=== PATIENT | female | born 1965 | race Caucasian/White ===

== ENCOUNTER 2025-03-03 13:58 | Inpatient (IN) ==
[2025-03-03] MEDS ORDERED: IOPAMIDOL 100 ML BOTTLE IV ONE (13:59)
[2025-03-03] MEDS: ONDANSETRON 4 MG/2 ML VIAL IV ONE (17:10)
[2025-03-03] MEDS: 0.9 % SODIUM CHLORIDE 1,000 ML IV ONE (17:10)
[2025-03-03] MEDS: KETOROLAC 15 MG/ML VIAL IV ONE (17:10)
[2025-03-03 17:19] LABS: Bacteria,Urine Many /hpf (0); Bilirubin,Urine Small mg/dL (Negative); Calcium Oxalate Crystals,Urine Few /hpf; Color,Urine Yellow; Glucose,Urine (UA) Negative (Negative); Ketones,Urine Trace mg/dL (Negative); Leukocyte Esterase,Urine Small /uL (Negative); PH,Urine 6.0 (5.0-9.0); Protein,Urine 100 mg/dL (Negative); Specific Gravity,Urine 1.025 (1.000-1.035); Urobilinogen,Urine Normal
[2025-03-03 17:39] LABS: Basophils # (Auto) 0.03 K/mcL (0.00-0.30); Basophils % (Auto) 0.4 % (0.0-2.0); Eosinophils # (Auto) 0.08 K/mcL (0.00-0.70); Eosinophils % (Auto) 1.0 % (0.0-7.0); Hematocrit 37.2 % (34.1-44.9); Hemoglobin 11.8 g/dL (11.2-15.7); Lymphocytes # (Auto) 1.95 K/mcL (1.50-4.80); Lymphocytes % (Auto) 23.8 % (15.5-49.0); Mean Corpuscular HGB Conc 31.7 g/dL (31.0-36.0); Monocytes # (Auto) 0.52 K/mcL (0.10-0.90); Monocytes % (Auto) 6.4 % (1.0-12.0); Neutrophils % (Auto) 68.2 % (38.0-78.0); Platelet Count 438 K/mcL (140-440); RBC 3.53 M/mcL (3.59-5.38); WBC 8.2 K/mcL (4.5-11.0)
[2025-03-03] MEDS: AMPICILLIN SODIUM/SULBACTAM NA 3 GM in 0.9 % SODIUM CHLORIDE 100 ML IV ONE (20:02)
[2025-03-03 20:29] LABS: ALT/SGPT 23 U/L (<40); AST/SGOT 13 U/L (<32); Albumin 3.5 gm/dL (3.2-5.2); Albumin/Globulin Ratio 1.5 (1.0-2.3); Alkaline Phosphatase 140 U/L (39-117); Anion Gap 10.0 (8.0-16.0); Bilirubin,Total 0.3 mg/dL (0.1-1.0); Blood Urea Nitrogen 28 mg/dL (8-23); Calcium 8.8 mg/dL (8.6-10.4); Carbon Dioxide 26 mmol/L (22-30); Chloride 102 mmol/L (96-108); Globulin 2.3 gm/dL (2.2-3.7); Glucose 90 mg/dL (70-105); Potassium 4.3 mmol/L (3.3-5.1); Sodium 138 mmol/L (133-145)
[2025-03-03] MEDS: ACETAMINOPHEN 1,000 MG/100 ML BAG IV ONE (20:34)
[2025-03-03] MEDS: ERTAPENEM 1 GM in 0.9 % SODIUM CHLORIDE 50 ML IV ONE (21:21)
[2025-03-03] MEDS ORDERED: SENNOSIDES 1 TABLET PO PRN (23:12)
[2025-03-03] MEDS: MELATONIN 3 MG TABLET PO SCH (23:56)
[2025-03-03] MEDS: LACTATED RINGERS 1,000 ML IV SCH (23:56)
[2025-03-04] MEDS: ZOLPIDEM 5 MG TABLET PO PRN (00:43)
[2025-03-04] MEDS: ZOLPIDEM 5 MG TABLET ONE (00:54)
[2025-03-04] MEDS: ACETAMINOPHEN 325 MG TABLET PO PRN (01:11)
[2025-03-04] MEDS: ACETAMINOPHEN 325 MG TABLET PO ONE (01:24)
[2025-03-04] MEDS: 0.9 % SODIUM CHLORIDE 10 ML SYRINGE IV SCH (04:53)
[2025-03-04 06:38] LABS: Phosphorous 3.4 mg/dL (2.5-4.5)
[2025-03-04 06:40] LABS: C-Reactive Protein < 0.30 mg/dL (0.03-0.80)
[2025-03-04 07:23] LABS: Basophils # (Auto) 0.02 K/mcL (0.00-0.30); Basophils % (Auto) 0.4 % (0.0-2.0); Eosinophils # (Auto) 0.02 K/mcL (0.00-0.70); Eosinophils % (Auto) 0.4 % (0.0-7.0); Hematocrit 32.6 % (34.1-44.9); Hemoglobin 10.4 g/dL (11.2-15.7); Lymphocytes # (Auto) 0.87 K/mcL (1.50-4.80); Lymphocytes % (Auto) 17.4 % (15.5-49.0); Mean Corpuscular HGB Conc 31.9 g/dL (31.0-36.0); Monocytes # (Auto) 0.32 K/mcL (0.10-0.90); Monocytes % (Auto) 6.4 % (1.0-12.0); Neutrophils % (Auto) 75.2 % (38.0-78.0); Platelet Count 308 K/mcL (140-440); RBC 3.12 M/mcL (3.59-5.38); WBC 5.0 K/mcL (4.5-11.0)
[2025-03-04 07:42] LABS: ALT/SGPT 345 U/L (<40); AST/SGOT 1098 U/L (<32); Albumin 2.9 gm/dL (3.2-5.2); Albumin/Globulin Ratio 1.6 (1.0-2.3); Alkaline Phosphatase 328 U/L (39-117); Anion Gap 9.0 (8.0-16.0); Bilirubin,Total 0.9 mg/dL (0.1-1.0); Blood Urea Nitrogen 19 mg/dL (8-23); Calcium 8.6 mg/dL (8.6-10.4); Carbon Dioxide 26 mmol/L (22-30); Chloride 102 mmol/L (96-108); Globulin 1.8 gm/dL (2.2-3.7); Glucose 93 mg/dL (70-105); Potassium 3.9 mmol/L (3.3-5.1); Sodium 137 mmol/L (133-145)
[2025-03-04] MEDS: LOSARTAN 50 MG TABLET PO SCH (08:32)
[2025-03-04] MEDS: ONDANSETRON 4 MG/2 ML VIAL IV PRN (08:33)
[2025-03-04] MEDS: ENOXAPARIN 40 MG/0.4 ML SYRINGE SQ SCH (08:34)
[2025-03-04] MEDS: ERTAPENEM 1 GM in 0.9 % SODIUM CHLORIDE 50 ML IV SCH (08:35)
[2025-03-04 09:11] LABS: ALT/SGPT 355 U/L (<40); AST/SGOT 1112 U/L (<32); Albumin 2.9 gm/dL (3.2-5.2); Alkaline Phosphatase 332 U/L (39-117); Bilirubin,Direct 0.6 mg/dL (<0.3); Bilirubin,Total 0.9 mg/dL (0.1-1.0); Globulin 1.9 gm/dL (2.2-3.7)
[2025-03-04 10:08] LABS: Hepatitis A Antibody IgM Non-Reactive (Non-Reactive); Hepatitis B Surface Antigen Negative (Negative)
[2025-03-04] MEDS: PROCHLORPERAZINE 10 MG/2 ML VIAL IV PRN (12:22)
[2025-03-04] MEDS: PREGABALIN 150 MG CAPSULE PO SCH (13:01)
[2025-03-05 06:57] LABS: Basophils # (Auto) 0.02 K/mcL (0.00-0.30); Basophils % (Auto) 0.9 % (0.0-2.0); Eosinophils # (Auto) 0.07 K/mcL (0.00-0.70); Eosinophils % (Auto) 3.1 % (0.0-7.0); Hematocrit 33.8 % (34.1-44.9); Hemoglobin 11.1 g/dL (11.2-15.7); Lymphocytes # (Auto) 0.91 K/mcL (1.50-4.80); Lymphocytes % (Auto) 39.7 % (15.5-49.0); Mean Corpuscular HGB Conc 32.8 g/dL (31.0-36.0); Monocytes # (Auto) 0.19 K/mcL (0.10-0.90); Monocytes % (Auto) 8.3 % (1.0-12.0); Neutrophils % (Auto) 47.6 % (38.0-78.0); Platelet Count 268 K/mcL (140-440); RBC 3.27 M/mcL (3.59-5.38); WBC 2.3 K/mcL (4.5-11.0)
[2025-03-05 07:10] LABS: ALT/SGPT 425 U/L (<40); AST/SGOT 565 U/L (<32); Albumin 3.1 gm/dL (3.2-5.2); Albumin/Globulin Ratio 1.6 (1.0-2.3); Alkaline Phosphatase 427 U/L (39-117); Anion Gap 10.0 (8.0-16.0); Bilirubin,Direct 0.2 mg/dL (<0.3); Bilirubin,Total 0.4 mg/dL (0.1-1.0); Blood Urea Nitrogen 12 mg/dL (8-23); Calcium 8.8 mg/dL (8.6-10.4); Carbon Dioxide 27 mmol/L (22-30); Chloride 101 mmol/L (96-108); Globulin 1.9 gm/dL (2.2-3.7); Glucose 101 mg/dL (70-105); Phosphorous 3.9 mg/dL (2.5-4.5); Potassium 4.0 mmol/L (3.3-5.1); Sodium 138 mmol/L (133-145); Triglycerides 99 mg/dL (<150); Uric Acid 3.3 mg/dL (2.5-8.0)
[2025-03-05] MEDS: LEVOTHYROXINE 50 MCG TABLET PO SCH (08:08)
[2025-03-05] MEDS: LIOTHYRONINE 5 MCG TABLET PO SCH (09:09)
[2025-03-05] MEDS: HEPARIN 10 UNITS/ML 5ML FLUSH IV SCH (20:22)
[2025-03-05] MEDS: 0.9 % SODIUM CHLORIDE 10 ML SYRINGE IV SCH (20:26)
[2025-03-06 06:39] LABS: Basophils # (Auto) 0.03 K/mcL (0.00-0.30); Basophils % (Auto) 0.9 % (0.0-2.0); Eosinophils # (Auto) 0.05 K/mcL (0.00-0.70); Eosinophils % (Auto) 1.4 % (0.0-7.0); Hematocrit 33.0 % (34.1-44.9); Hemoglobin 10.6 g/dL (11.2-15.7); Lymphocytes # (Auto) 1.07 K/mcL (1.50-4.80); Lymphocytes % (Auto) 30.9 % (15.5-49.0); Mean Corpuscular HGB Conc 32.1 g/dL (31.0-36.0); Monocytes # (Auto) 0.33 K/mcL (0.10-0.90); Monocytes % (Auto) 9.5 % (1.0-12.0); Neutrophils % (Auto) 57.3 % (38.0-78.0); Platelet Count 311 K/mcL (140-440); RBC 3.15 M/mcL (3.59-5.38); WBC 3.5 K/mcL (4.5-11.0)
[2025-03-06 07:02] LABS: ALT/SGPT 412 U/L (<40); AST/SGOT 497 U/L (<32); Albumin 2.9 gm/dL (3.2-5.2); Albumin/Globulin Ratio 1.4 (1.0-2.3); Alkaline Phosphatase 442 U/L (39-117); Anion Gap 9.0 (8.0-16.0); Bilirubin,Direct 0.4 mg/dL (<0.3); Bilirubin,Total 0.6 mg/dL (0.1-1.0); Blood Urea Nitrogen 18 mg/dL (8-23); Calcium 8.8 mg/dL (8.6-10.4); Carbon Dioxide 26 mmol/L (22-30); Chloride 101 mmol/L (96-108); Globulin 2.1 gm/dL (2.2-3.7); Glucose 100 mg/dL (70-105); Phosphorous 4.9 mg/dL (2.5-4.5); Potassium 4.5 mmol/L (3.3-5.1); Sodium 136 mmol/L (133-145); Triglycerides 87 mg/dL (<150); Uric Acid 4.7 mg/dL (2.5-8.0)
[2025-03-06] MEDS: 0.9 % SODIUM CHLORIDE 1,000 ML IV SCH (09:00)
[2025-03-06] MEDS: 0.9 % SODIUM CHLORIDE 500 ML IV ONE (09:17)
[2025-03-06 12:56] LABS: Anion Gap 10.0 (8.0-16.0); Blood Urea Nitrogen 19 mg/dL (8-23); Calcium 9.2 mg/dL (8.6-10.4); Carbon Dioxide 27 mmol/L (22-30); Chloride 101 mmol/L (96-108); Glucose 131 mg/dL (70-105); Potassium 4.6 mmol/L (3.3-5.1); Sodium 138 mmol/L (133-145)
[2025-03-06] MEDS ORDERED: SODIUM BICARBONATE VIAL 150 MEQ in WATER FOR INJECTION,STERILE 850 ML IV SCH (13:30)
[2025-03-06] MEDS: LACTATED RINGERS 1,000 ML IV ONE (13:48)
[2025-03-06] MEDS: LACTATED RINGERS 1,000 ML IV SCH (14:59)
[2025-03-07 06:22] LABS: Basophils # (Auto) 0.02 K/mcL (0.00-0.30); Basophils % (Auto) 0.2 % (0.0-2.0); Eosinophils # (Auto) 0.05 K/mcL (0.00-0.70); Eosinophils % (Auto) 0.6 % (0.0-7.0); Hematocrit 34.3 % (34.1-44.9); Hemoglobin 10.8 g/dL (11.2-15.7); Lymphocytes # (Auto) 0.85 K/mcL (1.50-4.80); Lymphocytes % (Auto) 9.6 % (15.5-49.0); Mean Corpuscular HGB Conc 31.5 g/dL (31.0-36.0); Monocytes # (Auto) 0.36 K/mcL (0.10-0.90); Monocytes % (Auto) 4.1 % (1.0-12.0); Neutrophils % (Auto) 85.3 % (38.0-78.0); Platelet Count 323 K/mcL (140-440); RBC 3.20 M/mcL (3.59-5.38); WBC 8.9 K/mcL (4.5-11.0)
[2025-03-07 06:48] LABS: ALT/SGPT 513 U/L (<40); AST/SGOT 470 U/L (<32); Albumin 3.2 gm/dL (3.2-5.2); Albumin/Globulin Ratio 1.5 (1.0-2.3); Alkaline Phosphatase 546 U/L (39-117); Anion Gap 10.0 (8.0-16.0); Bilirubin,Direct 0.4 mg/dL (<0.3); Bilirubin,Total 0.7 mg/dL (0.1-1.0); Blood Urea Nitrogen 20 mg/dL (8-23); Calcium 9.2 mg/dL (8.6-10.4); Carbon Dioxide 26 mmol/L (22-30); Chloride 103 mmol/L (96-108); Globulin 2.2 gm/dL (2.2-3.7); Glucose 122 mg/dL (70-105); Phosphorous 5.3 mg/dL (2.5-4.5); Potassium 5.1 mmol/L (3.3-5.1); Sodium 139 mmol/L (133-145); Triglycerides 85 mg/dL (<150); Uric Acid 5.1 mg/dL (2.5-8.0)
[2025-03-07] MEDS: SODIUM BICARBONATE VIAL 150 MEQ in WATER FOR INJECTION,STERILE 850 ML IV SCH (10:45)
[2025-03-07 19:04] LABS: Anion Gap 12.0 (8.0-16.0); Blood Urea Nitrogen 19 mg/dL (8-23); Calcium 9.2 mg/dL (8.6-10.4); Carbon Dioxide 27 mmol/L (22-30); Chloride 99 mmol/L (96-108); Glucose 150 mg/dL (70-105); Potassium 4.2 mmol/L (3.3-5.1); Sodium 138 mmol/L (133-145)
[2025-03-08 06:01] LABS: Basophils # (Auto) 0.03 K/mcL (0.00-0.30); Basophils % (Auto) 0.4 % (0.0-2.0); Eosinophils # (Auto) 0.19 K/mcL (0.00-0.70); Eosinophils % (Auto) 2.8 % (0.0-7.0); Hematocrit 34.6 % (34.1-44.9); Hemoglobin 10.5 g/dL (11.2-15.7); Lymphocytes # (Auto) 1.89 K/mcL (1.50-4.80); Lymphocytes % (Auto) 27.6 % (15.5-49.0); Mean Corpuscular HGB Conc 30.3 g/dL (31.0-36.0); Monocytes # (Auto) 0.34 K/mcL (0.10-0.90); Monocytes % (Auto) 5.0 % (1.0-12.0); Neutrophils % (Auto) 64.1 % (38.0-78.0); Platelet Count 250 K/mcL (140-440); RBC 3.11 M/mcL (3.59-5.38); WBC 6.9 K/mcL (4.5-11.0)
[2025-03-08 06:40] LABS: ALT/SGPT 349 U/L (<40); AST/SGOT 152 U/L (<32); Albumin 3.1 gm/dL (3.2-5.2); Albumin/Globulin Ratio 1.2 (1.0-2.3); Alkaline Phosphatase 507 U/L (39-117); Anion Gap 14.0 (8.0-16.0); Bilirubin,Direct < 0.2 mg/dL (0-0.3); Bilirubin,Total 0.4 mg/dL (0.1-1.0); Blood Urea Nitrogen 18 mg/dL (8-23); Calcium 8.8 mg/dL (8.6-10.4); Carbon Dioxide 26 mmol/L (22-30); Chloride 96 mmol/L (96-108); Globulin 2.5 gm/dL (2.2-3.7); Glucose 105 mg/dL (70-105); Phosphorous 3.9 mg/dL (2.5-4.5); Potassium 5.1 mmol/L (3.3-5.1); Sodium 136 mmol/L (133-145); Triglycerides 80 mg/dL (<150); Uric Acid 5.4 mg/dL (2.5-8.0)
[2025-03-08 12:02] LABS: Bilirubin,Urine Negative (Negative); Color,Urine Yellow; Glucose,Urine (UA) Negative (Negative); Ketones,Urine Negative (Negative); Leukocyte Esterase,Urine Negative /uL (Negative); PH,Urine 5.5 (5.0-9.0); Protein,Urine Negative (Negative); Specific Gravity,Urine 1.010 (1.000-1.035); Urobilinogen,Urine Normal
[2025-03-08] MEDS: METHOCARBAMOL 750 MG TABLET PO PRN (14:46)
[2025-03-08] MEDS: LIDOCAINE 4% TOP PATCH TOPICAL SCH (14:46)
[2025-03-09 06:46] LABS: ALT/SGPT 213 U/L (<40); AST/SGOT 51 U/L (<32); Albumin 2.8 gm/dL (3.2-5.2); Albumin/Globulin Ratio 1.3 (1.0-2.3); Alkaline Phosphatase 381 U/L (39-117); Anion Gap 8.0 (8.0-16.0); Bilirubin,Direct < 0.2 mg/dL (0-0.3); Bilirubin,Total < 0.2 mg/dL (0.1-1.0); Blood Urea Nitrogen 15 mg/dL (8-23); Calcium 8.6 mg/dL (8.6-10.4); Carbon Dioxide 36 mmol/L (22-30); Chloride 96 mmol/L (96-108); Globulin 2.1 gm/dL (2.2-3.7); Glucose 94 mg/dL (70-105); Phosphorous 4.4 mg/dL (2.5-4.5); Potassium 4.6 mmol/L (3.3-5.1); Sodium 140 mmol/L (133-145); Triglycerides 97 mg/dL (<150); Uric Acid 5.6 mg/dL (2.5-8.0)
[2025-03-09] MEDS: POLYETHYLENE GLYCOL 3350 17 GM PACKET PO PRN (09:02)
[2025-03-09 11:17] LABS: Basophils # (Auto) 0.03 K/mcL (0.00-0.30); Basophils % (Auto) 0.8 % (0.0-2.0); Eosinophils # (Auto) 0.13 K/mcL (0.00-0.70); Eosinophils % (Auto) 3.3 % (0.0-7.0); Hematocrit 34.6 % (34.1-44.9); Hemoglobin 10.8 g/dL (11.2-15.7); Lymphocytes # (Auto) 1.42 K/mcL (1.50-4.80); Lymphocytes % (Auto) 35.9 % (15.5-49.0); Mean Corpuscular HGB Conc 31.2 g/dL (31.0-36.0); Monocytes # (Auto) 0.33 K/mcL (0.10-0.90); Monocytes % (Auto) 8.4 % (1.0-12.0); Neutrophils % (Auto) 51.3 % (38.0-78.0); Platelet Count 310 K/mcL (140-440); RBC 3.21 M/mcL (3.59-5.38); WBC 4.0 K/mcL (4.5-11.0)
[2025-03-09 13:44] LABS: Anion Gap 8.0 (8.0-16.0); Blood Urea Nitrogen 13 mg/dL (8-23); Calcium 9.0 mg/dL (8.6-10.4); Carbon Dioxide 35 mmol/L (22-30); Chloride 97 mmol/L (96-108); Glucose 151 mg/dL (70-105); Potassium 4.7 mmol/L (3.3-5.1); Sodium 140 mmol/L (133-145)
[2025-03-09] MEDS ORDERED: IOPAMIDOL 100 ML BOTTLE IV ONE (14:51)
[2025-03-09] MEDS: SODIUM BICARBONATE VIAL 150 MEQ in WATER FOR INJECTION,STERILE 850 ML IV SCH (17:18)
[2025-03-09] MEDS: ASPIRIN 81 MG TAB.CHEW CHEWED ONE (21:42)
[2025-03-09 22:31] LABS: HDL Cholesterol 90 mg/dL (>40); LDL Cholesterol,Calculated 91 mg/dL (<100); Triglycerides 115 mg/dL (<150)
[2025-03-10 06:50] LABS: Basophils # (Auto) 0.03 K/mcL (0.00-0.30); Basophils % (Auto) 1.0 % (0.0-2.0); Eosinophils # (Auto) 0.13 K/mcL (0.00-0.70); Eosinophils % (Auto) 4.5 % (0.0-7.0); Hematocrit 30.1 % (34.1-44.9); Hemoglobin 9.7 g/dL (11.2-15.7); Lymphocytes # (Auto) 1.23 K/mcL (1.50-4.80); Lymphocytes % (Auto) 42.7 % (15.5-49.0); Mean Corpuscular HGB Conc 32.2 g/dL (31.0-36.0); Monocytes # (Auto) 0.22 K/mcL (0.10-0.90); Monocytes % (Auto) 7.6 % (1.0-12.0); Neutrophils % (Auto) 43.9 % (38.0-78.0); Platelet Count 276 K/mcL (140-440); RBC 2.86 M/mcL (3.59-5.38); WBC 2.9 K/mcL (4.5-11.0)
[2025-03-10 07:40] LABS: ALT/SGPT 156 U/L (<40); AST/SGOT 31 U/L (<32); Albumin 2.9 gm/dL (3.2-5.2); Albumin/Globulin Ratio 1.3 (1.0-2.3); Alkaline Phosphatase 319 U/L (39-117); Anion Gap 9.0 (8.0-16.0); Bilirubin,Direct < 0.2 mg/dL (0-0.3); Bilirubin,Total 0.2 mg/dL (0.1-1.0); Blood Urea Nitrogen 12 mg/dL (8-23); Calcium 8.9 mg/dL (8.6-10.4); Carbon Dioxide 34 mmol/L (22-30); Chloride 99 mmol/L (96-108); Globulin 2.3 gm/dL (2.2-3.7); Glucose 88 mg/dL (70-105); Phosphorous 4.5 mg/dL (2.5-4.5); Potassium 4.6 mmol/L (3.3-5.1); Sodium 142 mmol/L (133-145); Triglycerides 126 mg/dL (<150); Uric Acid 5.5 mg/dL (2.5-8.0)
[2025-03-10] MEDS: ASPIRIN 81 MG TAB.CHEW CHEWED SCH (10:06)
[2025-03-10 10:49] LABS: Bilirubin,Urine Negative (Negative); Color,Urine Yellow; Glucose,Urine (UA) Negative (Negative); Ketones,Urine Negative (Negative); Leukocyte Esterase,Urine Negative /uL (Negative); PH,Urine 8.5 (5.0-9.0); Protein,Urine Negative (Negative); Specific Gravity,Urine 1.015 (1.000-1.035); Urobilinogen,Urine Normal
[2025-03-10 11:22] LABS: Bacteria,Urine Many /hpf (0)
[2025-03-10] MEDS: FOSFOMYCIN TROMETHAMINE 3 GM PACKET PO ONE (12:59)
[2025-03-10] MEDS ORDERED: ATORVASTATIN 40 MG TABLET PO SCH (21:00)
== END 2025-03-10 13:45 | disposition home or self-care (01) | DRG 690 ==
LOC: ED 13:58 → MEDSUR 23:42
PROVIDERS: ADMIT Student in an Organized Health Care Education/Training Program; ATTEND Student in an Organized Health Care Education/Training Program